=== PATIENT | male | born 1960 | race African-American/Black ===

== ENCOUNTER 2022-12-11 19:26 | Inpatient (IN) | payer OTHER ==
--- NOTE | 2022-12-11 20:39 | RAD REPORT ---
EXAM DESCRIPTION: RAD - Chest Single View - 12/11/2022 8:33 pm CLINICAL HISTORY: DYSPNEA Chest pain. COMPARISON: No comparisons FINDINGS: Portable technique limits examination quality. Mild interstitial pulmonary edema seen. Small left pleural effusion. The heart is prominent in size. Multi lead pacer/ defibrillator device present. IMPRESSION: Mild CHF. Small left pleural effusion.
[2022-12-11] MEDS ORDERED: FUROSEMIDE 40 MG/4 ML VIAL ONE (21:46)
[2022-12-11 21:54] LABS: Absolute Lymphocytes (CBC) 2.1 K/uL (0.7-4.9); Hematocrit 46.9 % (39.6-49.0); Lymphocytes % 29.7 % (15.3-44.8); MCV 100.2 fL (80-100); MPV 8.6 fL (7.6-11.3); RBC Red Blood Cell Count 4.68 M/uL (4.33-5.43)
[2022-12-11 22:07] LABS: Albumin 3.9 g/dL (3.4-5.0); Bilirubin Direct 0.3 mg/dL (0-0.2); Bilirubin Indirect, Calculated 0.6 mg/dL (0.2-0.8); Bilirubin Total 0.9 mg/dL (0.2-1.0); Potassium 2.8 mEq/L (3.5-5.1); Protein, Total 8.4 g/dL (6.4-8.2)
[2022-12-11 22:10] LABS: Troponin High Sensitivity 89.3 pg/mL (<58.9)
--- NOTE | 2022-12-11 22:24 | ER ---
Nurse's Notes [facility] Name: Milind Case Age: 62 yrs Sex: Male : 1960 Arrival Date: 12/11/2022 Time: 19:26 Bed 8 Private MD: Diagnosis: Unspecified combined systolic (congestive) and diastolic (congestive) heart failure;Acute pulmonary edema;Dyspnea, unspecified Presentation: 12/11 20:12 Chief complaint: Patient states: here from out of town and took a long bus ride and i lg3 have extra fluid build up X1 week. Complaints of bilateral lower ext. swelling, abdominal swelling, SOB .im taking my meds but they just arent keeping up. Coronavirus screen: Client denies travel out of the [place] in the last 14 days. At this time, the client does not indicate any symptoms associated with coronavirus-19. Ebola Screen: No symptoms or risks identified at this time. Initial Sepsis Screen: Does the patient meet any 2 criteria? No. Patient's initial sepsis screen is negative. Does the patient have a suspected source of infection? No. Patient's initial sepsis screen is negative. Risk Assessment: Do you want to hurt yourself or someone else? Patient reports no desire to harm self or others. Onset of symptoms was December 04, 2022. 20:12 Method Of Arrival: Ambulatory lg3 20:12 Acuity: NAM 3 lg3 Triage Assessment: 20:18 General: Appears in no apparent distress. uncomfortable, Behavior is calm, cooperative. lg3 Pain: Denies pain. EENT: No deficits noted. No signs and/or symptoms were reported regarding the EENT system. Neuro: No deficits noted. Chaves Agitation-Sedation Scale (RASS): 0 - Alert and Calm Level of Consciousness is awake, alert, obeys commands, Oriented to person, place, time, situation. Cardiovascular: No deficits noted. Denies chest pain, shortness of breath. Respiratory: Reports shortness of breath Airway is patent Respiratory effort is even, with nasal flaring. GI: Abdomen is round distended, noted to have ascites, Reports lower abdominal pain, upper abdominal pain, bloating. : No deficits noted. No signs and/or symptoms were reported regarding the genitourinary system. Derm: No deficits noted. No signs and/or symptoms reported regarding the dermatologic system. Skin is intact, is healthy with good turgor, Skin is dry, Skin is normal, Skin temperature is warm. Musculoskeletal: No deficits noted. No signs and/or symptoms reported regarding the musculoskeletal system. Circulation, motion, and sensation intact. Range of motion: intact in all extremities. Historical: - Allergies: 20:18 No Known Allergies; lg3 - PMHx: 20:18 CHF; lg3 - PSHx: 20:18 pacemaker; cardiac cath; cardiac ablasian; lg3 - Immunization history:: Adult Immunizations up to date, Client reports receiving the 2nd dose of the Covid vaccine. - Social history:: Smoking status: Patient denies any tobacco usage or history of. Patient uses alcohol, occasionally. - Family history:: not pertinent. - Hospitalizations: : No recent hospitalization is reported. Screenin:06 [facility] ED Fall Risk Assessment (Adult) History of falling in the last 3 months, mb9 including since admission No falls in past 3 months (0 pts) Confusion or Disorientation No (0 pts) Intoxicated or Sedated No (0 pts) Impaired Gait No (0 pts) Mobility Assist Device Used No (0 pt) Altered Elimination No (0 pt) Score/Fall Risk Level 0 - 2 = Low Risk Oriented to surroundings, Maintained a safe environment, Educated pt \T\ family on fall prevention, incl call for assistance when getting out of bed. Abuse screen: Denies threats or abuse. Nutritional screening: No deficits noted. Tuberculosis screening: No symptoms or risk factors identified. Assessment: 22:06 Reassessment: No changes from previously documented assessment. Patient and/or family mb9 updated on plan of care and expected duration. Pain level reassessed. Patient is alert, oriented x 3, equal unlabored respirations, skin warm/dry/pink. 12/12 01:16 GI: Bowel sounds present X 4 quads. Abd is soft and non tender X 4 quads. rv Vital Signs: 12/11 20:12 BP 91 / 71; Pulse 88; Resp 19 S; Temp 98.6(O); Pulse Ox 100% on R/A; Weight 95.25 kg lg3 (R); Height 6 ft. 3 in. (R); 22:05 BP 92 / 77; Pulse 85; Resp 16; Pulse Ox 100% on R/A; mb9 12/12 01:16 BP 91 / 71 RA Supine; Pulse 88; Resp 18; Temp 98; Pulse Ox 100% ; rv 12/11 20:12 Body Mass Index 26.25 (95.25 kg, 190.5 cm) lg3 01:16 laying on his left side rv [place] Coma Score: 01:17 Eye Response: spontaneous(4). Motor Response: obeys commands(6). Verbal Response: rv oriented(5). Total: 15. ED Course: 12/11 19:28 Patient arrived in ED. jj6 19:56 Yony Catalan MD is Attending Physician. rn 20:18 Triage completed. lg3 20:18 Arm band placed on right wrist. lg3 20:35 XRAY Chest (1 view) In Process Unspecified. EDMS 21:21 Michael Banda, RADHA is Primary Nurse. rv 21:30 Inserted saline lock: 20 gauge in right antecubital area, using aseptic technique. rv Blood collected. 22:06 Bed in low position. Call light in reach. Side rails up X 1. Client placed on mb9 continuous cardiac and pulse oximetry monitoring. NIBP monitoring applied. 22:06 No provider procedures requiring assistance completed. mb9 22:11 Notified ED physician of a critical lab result(s). troponin 89. mb9 22:22 Eldon Motta is Hospitalizing Provider. rn 12/12 01:16 Provided Education on: lasix. rv 01:16 Patient admitted, IV remains in place. rv Administered Medications: 12/11 21:49 Drug: Furosemide IVP 40 mg Route: IVP; Site: right antecubital; rv 23:47 Follow up: Response: No adverse reaction rv Medication: 12/12 01:16 VIS not applicable for this client. rv Outcome: 12/11 22:23 Decision to Hospitalize by Provider. rn 12/12 01:16 Admitted to ER Hold. Please see [facility] for further documentation. rv Condition: stable Instructed on the need for admit. 08:05 Patient left the ED. ss Signatures: Dispatcher [employer] EDMS Yony Catalan MD MD rn Blanchard, Shelby, RN RN ss Michael Banda RN RN rv Zahra Lamb RN RN lg3 Isadora Aldridge j6 Breneman, Laurie, RN RN mb9
--- NOTE | 2022-12-11 22:24 | EDPHYS ---
Physician Documentation [facility] Name: Milind Case Age: 62 yrs Sex: Male : 1960 Arrival Date: 12/11/2022 Time: 19:26 Bed 8 Private MD: ED Physician Yony Catalan HPI: 12/11 20:43 This 62 yrs old Black Male presents to ER via Ambulatory with complaints of Swelling of rn Lower Extremity, Abdominal Swelling, Shortness Of Breath. 20:44 The patient has shortness of breath at rest, with light activity. Onset: The rn symptoms/episode began/occurred 1 week(s) ago. Duration: The symptoms are continuous. The patient's shortness of breath is aggravated by exertion, light activity, supine position, walking, is alleviated by nothing. Severity of symptoms: At their worst the symptoms were moderate in the emergency department the symptoms are unchanged. The patient has experienced similar episodes in the past. Pt from out of town, reports CHF, takes lasix once daily and feels "fluid building up" over the last week. Reports BP typically in 90s systolic, and "that's where heart doctor wants it". Denies chest pain. No abd pain. No syncope or dizziness. No bleeding.. Historical: - Allergies: 20:18 No Known Allergies; lg3 - PMHx: 20:18 CHF; lg3 - PSHx: 20:18 pacemaker; cardiac cath; cardiac ablasian; lg3 - Immunization history:: Adult Immunizations up to date, Client reports receiving the 2nd dose of the Covid vaccine. - Social history:: Smoking status: Patient denies any tobacco usage or history of. Patient uses alcohol, occasionally. - Family history:: not pertinent. - Hospitalizations: : No recent hospitalization is reported. ROS: 20:44 Constitutional: Negative for fever, chills, and weight loss, Eyes: Negative for injury, rn pain, redness, and discharge, Cardiovascular: Negative for chest pain, palpitations Respiratory: Negative for cough, wheezing, and pleuritic chest pain, Abdomen/GI: Negative for abdominal pain, nausea, vomiting, diarrhea, and constipation, Back: Negative for injury and pain, MS/Extremity: Negative for injury and deformity, Skin: Negative for injury, rash, and discoloration, Neuro: Negative for headache, numbness, tingling, and seizure. Exam: 20:44 Constitutional: This is a well developed, well nourished patient who is awake, alert, rn and in no acute distress. Cardiovascular: Regular rate and rhythm. No pulse deficits. Respiratory: + mild tachypnea, no retractions Abdomen/GI: Soft, non-tender Skin: Warm, dry with normal turgor. Normal color with no rashes, no lesions, and no evidence of cellulitis. MS/ Extremity: mild lower ext edema bilaterally Neuro: Awake and alert, GCS 15 23:27 ECG was reviewed by the Attending Physician. rn Vital Signs: 20:12 BP 91 / 71; Pulse 88; Resp 19 S; Temp 98.6(O); Pulse Ox 100% on R/A; Weight 95.25 kg lg3 (R); Height 6 ft. 3 in. (R); 22:05 BP 92 / 77; Pulse 85; Resp 16; Pulse Ox 100% on R/A; mb9 12/12 01:16 BP 91 / 71 RA Supine; Pulse 88; Resp 18; Temp 98; Pulse Ox 100% ; rv 12/11 20:12 Body Mass Index 26.25 (95.25 kg, 190.5 cm) lg3 01:16 laying on his left side rv [place] Coma Score: 01:17 Eye Response: spontaneous(4). Motor Response: obeys commands(6). Verbal Response: rv oriented(5). Total: 15. MDM: 12/11 19:56 Patient medically screened. rn 22:21 Differential diagnosis: CHF exacerbation, Pneumothorax pulmonary edema. Data reviewed: rn vital signs, nurses notes, lab test result(s), EKG, radiologic studies, plain films, and as a result, I will admit patient. Consideration of Admission/Observation Patient was admitted/placed on observation. Escalation of care including admission/observation considered. Counseling: I had a detailed discussion with the patient and/or guardian regarding: the historical points, exam findings, and any diagnostic results supporting the discharge/admit diagnosis, lab results, radiology results, the need for further work-up and treatment in the hospital. ED course: UNable to be very aggressive with diuresis due to patient normally running on low end. Patient states this is his normal blood pressure due to his cardiac meds. Will admit for gentle diuresis and observation.. 12/11 20:18 Order name: Basic Metabolic Panel; Complete Time: 22:14 rn 12/11 20:18 Order name: CBC with Diff; Complete Time: 22:14 rn 12/11 20:18 Order name: LFT's; Complete Time: 22:14 rn 12/11 20:18 Order name: NT PRO-BNP; Complete Time: 22:14 rn 12/11 20:18 Order name: PT-INR; Complete Time: 22:14 rn 12/11 20:18 Order name: Troponin HS; Complete Time: 22:14 rn 12/11 22:55 Order name: NT PRO-BNP EDMS 12/11 22:55 Order name: Urinalysis w/ reflexes EDMS 12/11 22:55 Order name: Basic Metabolic Panel EDMS 12/11 22:55 Order name: Basic Metabolic Panel EDMS 12/11 22:55 Order name: Basic Metabolic Panel EDMS 12/11 22:55 Order name: Basic Metabolic Panel EDMS 12/11 22:55 Order name: CBC with Automated Diff EDMS 12/11 22:55 Order name: CBC with Automated Diff EDMS 12/11 22:55 Order name: CBC with Automated Diff EDMS 12/11 22:55 Order name: CBC with Automated Diff EDMS 12/11 22:55 Order name: Magnesium EDMS 12/11 22:55 Order name: Magnesium EDMS 12/11 22:55 Order name: Magnesium EDMS 12/11 22:55 Order name: Magnesium EDMS 12/11 22:55 Order name: Phosphorus EDMS 12/11 22:55 Order name: Phosphorus EDMS 12/11 22:55 Order name: Phosphorus EDMS 12/11 22:55 Order name: Phosphorus EDMS 12/11 20:18 Order name: XRAY Chest (1 view); Complete Time: 20:40 rn 12/11 20:18 Order name: EKG; Complete Time: 20:18 rn 12/11 22:55 Order name: Heart Healthy EDMS 12/11 20:18 Order name: Cardiac monitoring; Complete Time: 21:18 rn 12/11 20:18 Order name: EKG - Nurse/Tech; Complete Time: 21:49 rn 12/11 20:18 Order name: IV Saline Lock; Complete Time: 21:49 rn 12/11 20:18 Order name: Labs collected and sent; Complete Time: 21:49 rn 12/11 20:18 Order name: O2 Per Protocol; Complete Time: 21:18 rn 12/11 20:18 Order name: O2 Sat Monitoring; Complete Time: 21:18 rn EC:27 Rate is 92 beats/min. Rhythm is regular. QRS interval is prolonged at 142 msec. No Q rn waves. T waves are Normal. No ST changes noted. Clinical impression: Electronic pacemaker. Interpreted by me. Reviewed by me. Administered Medications: :49 Drug: Furosemide IVP 40 mg Route: IVP; Site: right antecubital; rv 23:47 Follow up: Response: No adverse reaction rv Disposition Summary: 12/11/22 22:23 Hospitalization Ordered Hospitalization Status: Observation rn Provider: Eldon Motta rn Condition: Stable rn Problem: an acute exacerbation rn Symptoms: are unchanged rn Bed/Room Type: Standard rn Location: Telemetry/MedSurg (observation)(12/12/22 06:22) [facility]12/12/22 06:22) Diagnosis - Unspecified combined systolic (congestive) and diastolic (congestive) heart failure rn - Acute pulmonary edema rn - Dyspnea, unspecified rn Forms: - Medication Reconciliation Form rn - SBAR form rn Signatures: Dispatcher [employer] EDMS Radha Padilla RN RN mw Nieto, Roman, MD MD rn Vicente, Ronaldo, RN RN rv Gibson, Lacie RN RN lg3 Corrections: (The following items were deleted from the chart) 22:41 22:23 Telemetry/MedSurg (observation) rn 22:41 22:23 rn 12/12 06:22 12/11 22:41 [facility] ER HOLD mw 12/12 06:22 12/11 22:41 ERHOLD- mw
--- NOTE | 2022-12-11 22:47 | P.HP ---
Certification for Inpatient Patient admitted to: Inpatient With expected LOS: <2 Midnights Practitioner: I am a practitioner with admitting privileges, knowledge of patient current condition, hospital course, and medical plan of care. Services: Services provided to patient in accordance with Admission requirements found in Title 42 Section 412.3 of the Code of Federal Regulations Patient History Date of Service: 12/11/22 Reason for admission: shortness of breath History of Present Illness: 62-year-old black male with a past medical history cardiac ablations, defibrillator pacemaker, of CAD, heart failure presents to the emergency room with abdominal swelling, shortness of breath. He reports shortness of breath x1 week, he reports trying to take diuretics and reports he is continuing to gain weight. He denies chest pain, cough, fever, chills, abdominal pain, dizziness, syncope. He reports he is traveling from out out of town and is here for the summer. He reports history of low ejection fraction, he thinks is an average of 15%. Laboratory evaluation Acute on chronic kidney injury BUN 50 creatinine 1.72, estimated GFR 44 sodium mild 132 hypokalemia 2.8, troponin 89.3, likely elevated from acute on chronic heart failure BNP 4445 Chest x-ray Mild interstitial pulmonary edema seen. Small left pleural effusion. The heart is prominent in size. Multi lobe lead pacer/ defibrillator device present.IMPRESSION: Mild CHF.Small left pleural effusion. Review of Systems 10-point ROS is otherwise unremarkable Physical Examination - Physical Exam General: Alert, In no apparent distress, Oriented x3 HEENT: Atraumatic, Normocephalic, PERRLA Neck: 2+ carotid pulse no bruit, JVD not distended Respiratory: Normal air movement, Diminished Cardiovascular: No edema, Normal pulses, Regular rate/rhythm Capillary refill: <2 Seconds Gastrointestinal: Other (Abdominal obesity likely from fluid) Musculoskeletal: No clubbing, No swelling Integumentary: No rashes, No breakdown Neurological: Normal gait, Normal speech, Normal strength at 5/5 x4 extr - Studies Laboratory Data (last 24 hrs) 12/11/22 21:30: PT 11.9, INR 1.00 12/11/22 21:30: WBC 7.20, Hgb 15.5, Hct 46.9, Plt Count 198 12/11/22 21:30: Sodium 132 L, Potassium 2.8 L, BUN 50 H, Creatinine 1.72 H, Glucose 124 H, Total Bilirubin 0.9, AST 34, ALT 41, Alkaline Phosphatase 89 Assessment and Plan - Plan Assessment plan Acute on chronic heart failure with reduced ejection Elevated troponin likely from heart failure Acute on chronic kidney injury-unknown baseline Mild hypokalemia Pulmonary edema Anasarca Defibrillator/pacemaker DVT prophylaxis Acute on chronic heart failure with reduced ejection Cardiology consult, echo in the a.m. diuretics, daily weight, IO Elevated troponin likely from heart failure Trend troponin, troponin 89.3, Mild hypokalemia hypokalemia 2.8 Trend electrolytes replace as needed Acute on chronic kidney injury likely due to diuretic use unknown baseline Nephrology consult Acute on chronic kidney injury BUN 50 creatinine 1.72, estimated GFR 44 Pulmonary edema O2 2 L keep sats greater than 92%, diuretics, trend BNP Chest x-ray Mild interstitial pulmonary edema seen. Small left pleural effusion. The heart is prominent in size. Multi lobe lead pacer/ defibrillator device present.IMPRESSION: Mild CHF.Small left pleural effusion. BNP 4445 Anasarca Daily weights, diuretics, Defibrillator/pacemaker Telemetry, Cardiac diet Full code DVT heparin Discharge Plan: Home Plan to discharge in: 48 Hours - Advance Directives Does patient have a Living Will: No Does patient have a Durable POA for Healthcare: No - Code Status/Comfort Care Code Status: Full Code Physician Review: Patient Assessed, Agree with Above Assessment and Plan Critical Care: Yes Time Spent Managing Pts Care (In Minutes): 55
[2022-12-11] MEDS ORDERED: ONDANSETRON 4 MG/2 ML VIAL IV PRN (22:53)
[2022-12-11] MEDS ORDERED: ACETAMINOPHEN 500 MG TAB PO PRN (22:53)
[2022-12-12 02:05] LABS: Absolute Lymphocytes (CBC) 1.7 K/uL (0.7-4.9); Hematocrit 44.4 % (39.6-49.0); MCV 100.3 fL (80-100); MPV 8.5 fL (7.6-11.3); RBC Red Blood Cell Count 4.42 M/uL (4.33-5.43)
[2022-12-12 02:24] LABS: Magnesium 2.3 mg/dL (1.6-2.4); Phosphorus 3.9 mg/dL (2.5-4.9); Potassium 2.8 mEq/L (3.5-5.1)
[2022-12-12] MEDS ORDERED: POTASSIUM CL SA 10 MEQ TAB PO SCH ×2 (03:38→09:00)
[2022-12-12] MEDS ORDERED: POTASSIUM CL SA 10 MEQ TAB PO ONE ×2 (03:49→21:05)
[2022-12-12] MEDS ORDERED: ALPRAZOLAM 0.25 MG TABLET ONE (05:48)
[2022-12-12 06:01] LABS: Specific Gravity 1.012 (1.005-1.030); Urine Bilirubin NEGATIVE (Negative); Urine Blood Negative (Negative); Urine Clarity Clear (Clear); Urine Color Light-Yellow (Yellow); Urine Glucose 4+ (Negative); Urine Protein NEGATIVE (Negative); Urine Urobilinogen Normal (Normal); Urine pH 6.5 (5.0-7.0)
[2022-12-12] MEDS ORDERED: POTASSIUM CL 40 MEQ in NA CHLORIDE 0.9% 500 ML IV SCH (09:00)
[2022-12-12] MEDS: MIDODRINE HCL 5 MG TABLET PO SCH ×3 (09:26→21:33)
[2022-12-12] MEDS: POTASSIUM CL SA 10 MEQ TAB PO SCH ×2 (09:26→12:38)
--- NOTE | 2022-12-12 15:04 | P.CNS ---
Date of Consult: 12/12/22 Reason for Consult: Renal failure Requesting Physician: haley dominguez Chief Complaint: shortness of breath History of Present Illness: 62AAM w/ PMHx of CAD & chronic systolic HF/non-ischemic cardiomyopathy, cardiac ablations, defibrillator/pacemaker placement, who p/w shortness of breath and increased abdominal girth, admitted for acute on chronic heart failure. He lives in [place] and is here in [place] for a visit. He reports he has been following a senior gis analyst in [place]. He states his most recent LVEF is 15%. He states he takes Lasix and metolazone and Entresto at home. He is referred to nephrology for renal failure. His serum creatinine is 1.7 on admission, today remains the same at 1.7. He has hypokalemia. His serum bicarb level is elevated. His BNP significantly elevated. His blood pressure is borderline low and is currently on midodrine. Allergies No Known Allergies Allergy (Unverified 12/12/22 00:25) - Social History Place of Residence: Home Review of Systems General: Unremarkable Eyes: Unremarkable ENT: Unremarkable Respiratory: Shortness of Breath, SOB with Excertion Cardiovascular: Edema Gastrointestinal: Distention Genitourinary: Unremarkable Musculoskeletal: Unremarkable Integumentary: Unremarkable Neurological: Unremarkable Lymphatics: Unremarkable Physical Examination Temp Pulse Resp BP Pulse Ox 97.0 F 100 H 16 121/72 95 12/12/22 11:52 12/12/22 11:52 12/12/22 11:52 12/12/22 11:52 12/12/22 11:52 General: Other (appears as his stated age) HEENT: Atraumatic, Normocephalic Neck: Supple Respiratory: Other (symmetric chest expansion) Cardiovascular: No rubs, No murmurs Gastrointestinal: Soft and benign, No guarding Musculoskeletal: No clubbing, Swelling Integumentary: No warmth Neurological: Normal speech, Normal tone Lymphatics: No axilla or inguinal lymphadenopathy Urinary: Other (no bladder distention) External genitalia: Deferred Rectal: Deferred Laboratory Data (last 24 hrs) 12/11/22 21:30: PT 11.9, INR 1.00 12/11/22 21:30: WBC 7.20, Hgb 15.5, Hct 46.9, Plt Count 198 12/11/22 21:30: Sodium 132 L, Potassium 2.8 L, BUN 50 H, Creatinine 1.72 H, Glucose 124 H, Total Bilirubin 0.9, AST 34, ALT 41, Alkaline Phosphatase 89 Conclusions/Impression: # FREDDY 2/2 CRS1 on CKD3, vs stable CKD3b SCr 1.7 on admission, today remains the same Has serum protein gap. urinalysis negative for proteinuria. Follow-up random UPCR. Cont Lasix 60 IV twice a day [place] by mouth fluid intake # Acute on chronic systolic HF/non-ischemic cardiomyopathy S/p AICD He is followed by a senior gis analyst in [place]. He reports his most recent LVEF is 15%. BNP significantly elevated F/u TTE Cardiology consult Continue Lasix 60 mg IV twice a day # Hypokalemia Follow-up urine chemistry KCl repletion today # Hypotension likely secondary to heart failure Continue midodrine
--- NOTE | 2022-12-12 15:12 | P.PN ---
Subjective Date of Service: 12/12/22 Chief Complaint: shortness of breath Patient states his shortness of breath and lower extremity swelling have improved but still very concerned about his abdominal distention. He is tolerating room air. Physical Examination - Vital Signs Temperature: 97.0 F Blood Pressure: 121/72 Pulse: 100 Respirations: 16 Pulse Ox (%): 95 - Studies Laboratory Data (last 24 hrs) 12/11/22 21:30: PT 11.9, INR 1.00 12/11/22 21:30: WBC 7.20, Hgb 15.5, Hct 46.9, Plt Count 198 12/11/22 21:30: Sodium 132 L, Potassium 2.8 L, BUN 50 H, Creatinine 1.72 H, Glucose 124 H, Total Bilirubin 0.9, AST 34, ALT 41, Alkaline Phosphatase 89 Assessment And Plan - Plan Physical Exam General: Alert, In no apparent distress, Oriented x3 Neck: JVD not distended Respiratory: Normal air movement, Diminished Cardiovascular: No edema, Normal pulses, Regular rate/rhythm Gastrointestinal: Ascites, no tenderness. Musculoskeletal: No clubbing, No swelling Integumentary: No rashes, No breakdown Neurological: Normal gait, Normal speech, Normal strength at 5/5 x4 extr Diagnosis Acute on chronic systolic heart failure Type II NSTEMI Acute on chronic kidney injury-unknown baseline Hypokalemia Anasarca Defibrillator/pacemaker in place Plan Acute on chronic heart failure with reduced ejection Continue IV Lasix for diuresis Daily weight, intake and output monitor. Fluid restriction to 1500 ml per day. AICD in place Elevated troponin likely from heart failure Trend troponin. Mild hypokalemia Replace electrolytes as needed Acute on chronic kidney injury likely due to diuretic use unknown baseline Nephrology consult Full code DVT prophylaxis: heparin
[2022-12-12] MEDS: FUROSEMIDE 40 MG/4 ML VIAL IV SCH (16:02)
--- NOTE | 2022-12-12 17:54 | RAD REPORT ---
EXAM DESCRIPTION: US - Renal Ultrasound-Complete - 12/12/2022 5:47 pm CLINICAL HISTORY: FREDDY vs CKD, assess for hydroneph CKD changes COMPARISON: No comparisons FINDINGS: Both kidneys are normal in size, shape and echotexture. The right kidney measures 10.3 cm. No hydronephrosis, focal mass or perinephric fluid. The left kidney measures 9.2 cm. No hydronephrosis, focal mass or perinephric fluid. The urinary bladder is incompletely distended without gross abnormality seen. IMPRESSION: Unremarkable renal sonogram. No hydronephrosis .
[2022-12-12 18:02] LABS: UR PROTEIN 19.1 mg/dL (<11.9); Urine Protein/Creatinine Ratio 0.37 ratio (<0.15)
--- NOTE | 2022-12-12 18:08 | CON ---
Date of Consultation: 12/12/2022 Reason For Consultation: Heart failure. History Of Present Illness: A 62-year-old male, known to have history of nonischemic cardiomyopathy, ejection fraction is less than 20%, has defibrillator in place, presented with worsening shortness o f breath, lower extremity edema, and orthopnea. No chest pain. He took a long trip from [place], ri ding the bus about 24 hours, and he did not take his diuretics and he came in and I called his cardio logist and he added metolazone but fluids were not coming off and he became extremely short of breath , so he presented to the emergency room. Past Medical History: As outlined above in the HPI. Medications: Refer to reconciliation sheet for detailed list. Allergies: NO KNOWN DRUG ALLERGIES. Family History: No premature coronary artery disease or cancer. Social History: He does not smoke or drink. Does not use any drugs. Review of Systems: All systems were reviewed, they were negative except as mentioned in HPI. Physical Examination: Vital Signs: Reviewed. Head and Neck: Pupils are equal, reactive to light. Intact eye movements. Positive JVD. No cervic al lymphadenopathy. Neck is supple. Thyroid is not enlarged. Lungs: Clear to auscultation bilaterally. No rhonchi, wheezing, or crackles. No accessory muscle u se. Heart: Regular rate and rhythm with S3 gallop. Abdomen: Soft, nontender. Bowel sounds positive. No organomegaly. No masses or hernia. No rigidi ty or rebound. Extremities: 2+ pedal edema bilaterally. No clubbing, cyanosis. Intact pulses. Skin: No rash. No nodules. Neurologic: Alert, awake. No acute focal deficits appreciated. Investigations: BUN 49, creatinine 1.72, potassium is 2.8. Troponin is 89. Assessment And Recommendations: 1.Acute on chronic systolic heart failure exacerbation. Definitely the patient is fluid overloaded, start him on Lasix at 60 mg IV q.12 hours. Monitor BUN, creatinine, electrolytes, and replace the p otassium in an aggressive manner. Check the magnesium level. 2.Hypokalemia. Potassium is being replaced. Check magnesium level and replace if needed. 3.Elevated troponin, likely demand. No chest pain. He said he had cardiac cath in the past with no rmal coronary arteries. We will monitor. SR/MODL Voice ID: [id number] Report ID: [id number]
[2022-12-12] MEDS: ALPRAZOLAM 0.25 MG TABLET PO PRN (21:35)
[2022-12-13 02:51] LABS: Absolute Lymphocytes (CBC) 1.7 K/uL (0.7-4.9); Hematocrit 42.9 % (39.6-49.0); Lymphocytes % 24.4 % (15.3-44.8); MCV 100.8 fL (80-100); MPV 8.7 fL (7.6-11.3); RBC Red Blood Cell Count 4.25 M/uL (4.33-5.43)
[2022-12-13 03:06] LABS: Magnesium 2.1 mg/dL (1.6-2.4); Phosphorus 3.5 mg/dL (2.5-4.9); Potassium 3.4 mEq/L (3.5-5.1)
[2022-12-13] MEDS: MIDODRINE HCL 5 MG TABLET PO SCH (08:38)
[2022-12-13] MEDS: FUROSEMIDE 40 MG/4 ML VIAL IV SCH ×2 (08:44→16:22)
[2022-12-13] MEDS ORDERED: METOLAZONE 5 MG TABLET PO SCH (09:00)
[2022-12-13] MEDS ORDERED: POTASSIUM CL SA 10 MEQ TAB PO ONE (09:00)
[2022-12-13] MEDS: MIDODRINE HCL 5 MG TABLET PO PRN (09:00)
[2022-12-13] MEDS: ASPIRIN 81 MG CHEWABLE TABLET PO SCH (09:00)
[2022-12-13] MEDS: SACUBITRIL/VALSARTAN 24/26 MG TAB PO SCH ×2 (09:00→21:24)
[2022-12-13] MEDS: POTASSIUM CL SA 10 MEQ TAB PO SCH ×2 (09:01→21:00)
[2022-12-13] MEDS: HOME MED 1 EA UNK (Dapagliflozin Propanediol [Farxiga] 5 MG Tablet) PO SCH (09:27)
[2022-12-13] MEDS: HOME MED 1 EA UNK (Vericiguat [Verquvo] 5 MG Tablet) PO SCH (09:28)
--- NOTE | 2022-12-13 12:57 | P.PN ---
Subjective Date of Service: 12/13/22 Chief Complaint: shortness of breath Subjective: Other (He reports no increase in shortness of breath.) Physical Examination - Vital Signs Temperature: 97.5 F Blood Pressure: 111/92 Pulse: 96 Respirations: 16 Pulse Ox (%): 96 - Physical Exam General: Other (appears as his stated age) HEENT: Atraumatic, Normocephalic Neck: Supple, JVD not distended Respiratory: Other (symmetric chest expansion) Cardiovascular: No rubs, No murmurs Gastrointestinal: Soft and benign, No rebound Musculoskeletal: Swelling Integumentary: No warmth Neurological: Normal speech, Normal tone Urinary: Other (no bladder distention) External genitalia: Deferred Rectal: Deferred Assessment And Plan - Plan # FREDDY 2/2 CRS1 on CKD3, vs stable CKD3b SCr 1.7 on admission, at 1.6 today Has serum protein gap. urinalysis negative for proteinuria. Follow-up random UPCR. Cont Lasix 60 mg IV twice a day [place] by mouth fluid intake # Hypokalemia KCl repletion today Start sonal 25 mg po bid Dc metolazone Cont lasix # Acute on chronic systolic HF/non-ischemic cardiomyopathy S/p AICD He is followed by a customer care consultant in [place]. He reports his most recent LVEF is 15%. BNP significantly elevated F/u TTE Cardiology following Continue Lasix 60 mg IV twice a day Start sonal po bid as above # Hypotension likely secondary to heart failure Continue midodrine Physician Review: Patient Assessed, Agree with Above Assessment and Plan
--- NOTE | 2022-12-13 13:01 | P.PN ---
Subjective Date of Service: 12/13/22 Chief Complaint: shortness of breath Patient reports worsening shortness of breath last night. He was put on oxygen last night. He states he feels much better this morning. Good diuresis with the current dose of IV Lasix. He is now tolerating room air. Physical Examination - Vital Signs Temperature: 97.5 F Blood Pressure: 111/92 Pulse: 96 Respirations: 16 Pulse Ox (%): 96 Assessment And Plan - Plan Physical Exam General: Alert, In no apparent distress, Oriented x3 Neck: JVD not distended Respiratory: Normal air movement, Diminished Cardiovascular: No edema, Normal pulses, Regular rate/rhythm Gastrointestinal: Ascites, no tenderness. Musculoskeletal: No clubbing, No swelling Integumentary: No rashes, No breakdown Neurological: Normal gait, Normal speech, Normal strength at 5/5 x4 extr Diagnosis Acute on chronic systolic heart failure Type II NSTEMI Acute on chronic kidney injury-unknown baseline Hypokalemia Anasarca Defibrillator/pacemaker in place Plan Acute on chronic heart failure with reduced ejection Continue current dose IV Lasix for diuresis. Resume home medication-metolazone, Entresto, Verquvo. Midodrine for hypotension. Cardiology input appreciated. Ascites is improving Daily weight, intake and output monitor. Fluid restriction to 1500 ml per day. AICD in place Elevated troponin likely from heart failure Troponin was mildly elevated but trended flat and likely secondary to demand ischemia. Mild hypokalemia Replace electrolytes as needed Acute on chronic kidney injury likely due to diuretic use unknown baseline Nephrology is following. Full code DVT prophylaxis: heparin
[2022-12-13] MEDS ORDERED: POTASSIUM 25 MEQ EFFERV TAB PO ONE (16:12)
[2022-12-13] MEDS: ALPRAZOLAM 0.25 MG TABLET PO PRN (21:24)
[2022-12-14 03:36] LABS: Absolute Lymphocytes (CBC) 2.2 K/uL (0.7-4.9); Hematocrit 43.5 % (39.6-49.0); Lymphocytes % 28.2 % (15.3-44.8); MCV 99.7 fL (80-100); MPV 8.7 fL (7.6-11.3); RBC Red Blood Cell Count 4.36 M/uL (4.33-5.43)
[2022-12-14 03:59] LABS: Magnesium 1.9 mg/dL (1.6-2.4); Phosphorus 3.3 mg/dL (2.5-4.9); Potassium 2.9 mEq/L (3.5-5.1)
[2022-12-14] MEDS ORDERED: POTASSIUM CL SA 10 MEQ TAB PO ONE ×2 (07:17→15:18)
[2022-12-14] MEDS ORDERED: KCL 20 MEQ/100 mL IVPB 20 MEQ/100 ML BAG IV SCH (08:00)
[2022-12-14] MEDS ORDERED: NA CHLORIDE 0.9% 250 ML ONE (08:06)
[2022-12-14] MEDS: ASPIRIN 81 MG CHEWABLE TABLET PO SCH (08:59)
[2022-12-14] MEDS: SACUBITRIL/VALSARTAN 24/26 MG TAB PO SCH ×2 (09:00→20:42)
[2022-12-14] MEDS: HOME MED 1 EA UNK (Vericiguat [Verquvo] 5 MG Tablet) PO SCH (09:01)
[2022-12-14] MEDS: HOME MED 1 EA UNK (Dapagliflozin Propanediol [Farxiga] 5 MG Tablet) PO SCH (09:01)
[2022-12-14] MEDS: SPIRONOLACTONE 25 MG TABLET PO SCH ×2 (09:03→20:35)
[2022-12-14] MEDS: FUROSEMIDE 40 MG/4 ML VIAL IV SCH ×2 (09:03→16:30)
[2022-12-14] MEDS: VITAMIN D 1000 UNIT TAB PO SCH (09:14)
--- NOTE | 2022-12-14 12:45 | P.PN ---
Subjective Date of Service: 12/14/22 Chief Complaint: shortness of breath Patient reports no issues overnight. He currently denies any shortness of breath. His leg swelling and ascites have significantly improved. Good diuresis with the current dose of IV Lasix. Serum creatinine trended up slightly compared to yesterday. * Physical Examination - Vital Signs Temperature: 98.8 F Blood Pressure: 91/64 Pulse: 95 Respirations: 16 Pulse Ox (%): 96 Assessment And Plan - Plan Physical Exam General: Alert, In no apparent distress, Oriented x3 Neck: JVD not distended Respiratory: Normal air movement, Diminished Cardiovascular: No edema, Normal pulses, Regular rate/rhythm Gastrointestinal: Ascites significantly improved, no tenderness. Musculoskeletal: No clubbing, No swelling Integumentary: No rashes, No breakdown Neurological: Normal gait, Normal speech, Normal strength at 5/5 x4 extr Diagnosis Acute on chronic systolic heart failure Type II NSTEMI Acute on chronic kidney injury-unknown baseline Hypokalemia Anasarca Defibrillator/pacemaker in place Plan Acute on chronic heart failure with reduced ejection Continue current dose IV Lasix for diuresis. Serum creatinine is overall fairly stable. Continue home medication-metolazone, Entresto, Verquvo. Midodrine for hypotension. Cardiology seen patient Ascites has significantly improved. Daily weight, intake and output monitor. Fluid restriction to 1500 ml per day. AICD in place Elevated troponin likely from heart failure Troponin was mildly elevated but trended flat and likely secondary to demand ischemia. Mild hypokalemia Replace electrolytes as needed Acute on chronic kidney injury likely due to diuretic use unknown baseline Nephrology is following. Full code DVT prophylaxis: heparin
--- NOTE | 2022-12-14 14:28 | P.PN ---
Subjective Date of Service: 12/14/22 Chief Complaint: shortness of breath Subjective: Other (no urinary complaints.) Physical Examination - Vital Signs Temperature: 98.8 F Blood Pressure: 91/64 Pulse: 95 Respirations: 16 Pulse Ox (%): 96 - Physical Exam General: Alert, Oriented x3 HEENT: Atraumatic, Normocephalic Neck: Supple, JVD not distended Respiratory: Other (symmetric chest expansion) Cardiovascular: No rubs, No murmurs Gastrointestinal: Soft and benign, No ascites Musculoskeletal: Swelling Integumentary: No warmth Neurological: Normal speech, Normal tone Urinary: Other (no bladder distention) External genitalia: Deferred Rectal: Deferred Assessment And Plan - Plan # FREDDY 2/2 CRS1 on CKD3, vs stable CKD3b SCr 1.7 on admission, at 1.8 today Has serum protein gap. urinalysis negative for proteinuria. Follow-up random UPCR. Cont Lasix 60 mg IV twice a day [place] by mouth fluid intake # Hypokalemia KCl repletion today Sonal 25 mg po bid Cont lasix # Acute on chronic systolic HF/non-ischemic cardiomyopathy S/p AICD He is followed by a pleat taper in [place]. He reports his most recent LVEF is 15%. BNP significantly elevated For TTE on 12/15 Cardiology following Has adeq natriuresis on repeat urine chem done on 12/14 Continue Lasix 60 mg IV twice a day Cont sonal po bid as above # Hypotension likely secondary to heart failure Continue midodrine Physician Review: Patient Assessed, Agree with Above Assessment and Plan
[2022-12-14] MEDS: MIDODRINE HCL 5 MG TABLET PO PRN (16:30)
[2022-12-14 18:45] VITALS: BMI 27.7
[2022-12-14] MEDS: ALPRAZOLAM 0.25 MG TABLET PO PRN (20:36)
[2022-12-15] MEDS: MIDODRINE HCL 5 MG TABLET PO PRN (00:14)
[2022-12-15] MEDS ORDERED: NA CHLORIDE 0.9% 1,000 ML ONE (04:14)
[2022-12-15] MEDS ORDERED: POTASSIUM 25 MEQ EFFERV TAB ONE (05:05)
[2022-12-15 07:46] LABS: Absolute Lymphocytes (CBC) 2.4 K/uL (0.7-4.9); Hematocrit 42.6 % (39.6-49.0); Lymphocytes % 35.1 % (15.3-44.8); MCV 99.8 fL (80-100); MPV 9.3 fL (7.6-11.3); RBC Red Blood Cell Count 4.27 M/uL (4.33-5.43)
[2022-12-15] MEDS: FUROSEMIDE 40 MG/4 ML VIAL IV SCH ×3 (09:00→17:38)
[2022-12-15] MEDS: SACUBITRIL/VALSARTAN 24/26 MG TAB PO SCH ×2 (09:00→20:24)
[2022-12-15] MEDS: VITAMIN D 1000 UNIT TAB PO SCH (09:00)
[2022-12-15] MEDS: ASPIRIN 81 MG CHEWABLE TABLET PO SCH (09:00)
[2022-12-15] MEDS: HOME MED 1 EA UNK (Dapagliflozin Propanediol [Farxiga] 5 MG Tablet) PO SCH (09:00)
[2022-12-15] MEDS: HOME MED 1 EA UNK (Vericiguat [Verquvo] 5 MG Tablet) PO SCH (09:00)
[2022-12-15] MEDS: SPIRONOLACTONE 25 MG TABLET PO SCH ×2 (09:00→20:24)
--- NOTE | 2022-12-15 11:54 | EKG ---
Test Date: 2022-12-11 Test Time: 21:43:29 Biomass Technician: RV MEASUREMENT RESULTS: Intervals: Rate: 92 ND: 158 QRSD: 142 QT: 416 QTc: 514 [place]: P: 48 ND: 158 QRS: 125 T: 27 INTERPRETIVE STATEMENTS: Electronic ventricular pacemaker No previous ECG available for comparison Electronically Signed On 12-15-22 11:47:53 CDT by Simon Molina
[2022-12-15] MEDS ORDERED: KCL 20 MEQ/100 mL IVPB 100 ML IV ONE (12:32)
--- NOTE | 2022-12-15 13:38 | ECHO ---
HEIGHT: 6 ft 3 in WEIGHT: 222 lb 0 oz DATE OF STUDY: 12/15/[address]: Ronal Isaacs MD 2-DIMENSIONAL: YES M.MODE: YES DOPPLER: YES COLOR FLOW: YES TDS: PORTABLE: YES DEFINITY: BUBBLE STUDY: DIAGNOSIS: CONGESTIVE HEART FAILURE CARDIAC HISTORY: CATHERIZATION: YES SURGERY: PROSTHETIC VALVE: PACEMAKER: YES/ DEFIB MEASUREMENTS (cm) DIASTOLIC (NORMALS) SYSTOLIC (NORMALS) IVSd 0.9 (0.6-1.2) LA Diam 5.2 (1.9-4.0) LVEF 17% LVIDd 7.3 (3.5-5.7) LVIDs 6.7 (2.0-3.5) %FS 8% LVPWd 1.0 (0.6-1.2) Ao Diam 2.8 (2.0-3.7) 2 DIMENSIONAL ASSESSMENT: RIGHT ATRIUM: NORMAL LEFT ATRIUM: ENLARGED RIGHT VENTRICLE: NORMAL WITH PACEMAKER LEFT VENTRICLE: DILATED LEFT VENTRICLE TRICUSPID VALVE: SEVERE TRICUSPID REGURGITATION MITRAL VALVE: MILD MITRAL REGURGITATION PULMONIC VALVE: MILD PULMONIC INSUFFICIENCY AORTIC VALVE: NORMAL PERICARDIAL EFFUSION: NONE AORTIC ROOT: NORMAL LEFT VENTRICULAR WALL MOTION: SEVERE GLOBAL HYPOKINESIS DOPPLER/COLOR FLOW: SEE BELOW COMMENTS: 1. SEVERELY DEPRESSED LEFT VENTRICULAR EJECTION FRACTION 15-20% 2. SEVERE GLOBAL HYPOKINESIS 3. LEFT ATRIAL ENLARGEMENT 4. SEVERELY DILATED LEFT VENTRICLE 5. MILD MITRAL REGURGITATION 6. SEVERE TRICUSPID REGURGITATION 7. MILD PULMONIC INSUFFICIENCY 8. SEVERE DIASTOLIC DYSFUNCTION (RESTRICTIVE) 9. RIGHT VENTRICULAR SYSTOLIC PRESSURE IS 30-35 mmHg TECHNOLOGIST: JUANIS HARRISON
[2022-12-15 13:47] LABS: Potassium 2.5 mEq/L (3.5-5.1)
[2022-12-15] MEDS: KCL 20 MEQ/100 mL IVPB 100 ML IV SCH ×2 (14:00→14:47)
--- NOTE | 2022-12-15 14:41 | P.PN ---
Subjective Date of Service: 12/15/22 Chief Complaint: shortness of breath Patient reports no issues overnight. He currently denies any shortness of breath. His leg swelling has significantly improved. He is still concerned about his ascites Good diuresis with the current dose of IV Lasix. Serum creatinine stable from yesterday. * Physical Examination - Vital Signs Temperature: 98.8 F Blood Pressure: 91/64 Pulse: 95 Respirations: 16 Pulse Ox (%): 96 Assessment And Plan - Plan Physical Exam General: Alert, In no apparent distress, Oriented x3 Neck: JVD not distended Respiratory: Normal air movement, Diminished Cardiovascular: No edema, Normal pulses, Regular rate/rhythm Gastrointestinal: Ascites significantly improved, no tenderness. Musculoskeletal: No clubbing, No swelling Integumentary: No rashes, No breakdown Neurological: Normal gait, Normal speech, Normal strength at 5/5 x4 extr Diagnosis Acute on chronic systolic heart failure Type II NSTEMI Acute on chronic kidney injury-unknown baseline Hypokalemia Anasarca Defibrillator/pacemaker in place Plan Acute on chronic heart failure with reduced ejection Continue current dose IV Lasix for diuresis. Serum creatinine is overall fairly stable. Continue home medication-metolazone, Entresto, Verquvo. Midodrine for hypotension. Repeat potassium. Patient started on Aldactone for advanced heart failure. Cardiology seen patient US guided paracentesis for ascites. Daily weight, intake and output monitor. Fluid restriction to 1500 ml per day. AICD in place Elevated troponin likely from heart failure Troponin was mildly elevated but trended flat and likely secondary to demand ischemia. Mild hypokalemia Replace electrolytes as needed Acute on chronic kidney injury likely due to diuretic use unknown baseline Nephrology is following. Full code DVT prophylaxis: heparin
[2022-12-15 16:44] LABS: Phosphorus 3.3 mg/dL (2.5-4.9)
[2022-12-15 16:45] LABS: Magnesium 2.1 mg/dL (1.6-2.4); Potassium 3.6 mEq/L (3.5-5.1)
--- NOTE | 2022-12-15 20:35 | PN ---
Date of Progress Note: 12/14/2022 Subjective: Patient was seen by bedside, doing better. Continues to have shortness of breath on exe rtion. He has increase in abdominal girth, also some ascites. Review of Systems: Positive shortness of breath on exertion, orthopnea, and ascites. No nausea, vomiting, or diarrhea. No abdominal pain. All other systems reviewed, they were negative. Physical Examination: Vital Signs: Reviewed. Head and Neck: Pupils are equal, reactive to light. Intact eye movements. Positive JVD elevation. Lungs: Clear to auscultation bilaterally. No rhonchi, wheezing, or crackles. No accessory muscle u se. Heart: Regular rate and rhythm with S3 gallop. Abdomen: Soft with mild ascites. Extremities: Edema bilaterally 1+. No clubbing, cyanosis. Intact pulses. Skin: No rash. Neurologic: Alert, awake. No acute focal deficits appreciated. Investigations: Labs reviewed. Assessment/recommendations: 1.Acute on chronic systolic heart failure exacerbation, on diuretics, improving. Continue current m anagement. Obtain echo in the morning. 2.Hypokalemia. Replace potassium in aggressive manner and re-evaluate to keep potassium above 4. SR/MODL Voice ID: [id number] Report ID: [id number]
--- NOTE | 2022-12-15 20:50 | PN ---
Date of Progress Note: 12/15/2022 Subjective: Seen by bedside. Continues to have shortness of breath with exertion. Review of Systems: Positive for shortness of breath. No exertional orthopnea and lower extremity edema. No nausea, vom iting, diarrhea. All other systems reviewed, they were negative. Physical Examination: Vital Signs: Reviewed. Head and Neck: Pupils are equal, reactive to light. Intact eye movements. Positive JVD. No cervic al lymphadenopathy. Neck: Supple. Thyroid is not enlarged. Lungs: Decreased breathing sounds with faint crackles in bases. No accessory muscle use or muscle r etraction. Heart: Regular rate and rhythm with S3 gallop. Abdomen: Soft, nontender. Bowel sounds positive. No rigidity or rebound. Positive ascites extremi ties 1+ edema bilaterally. No clubbing, cyanosis. Intact pulses skin no rash. Neurologic: Alert, awake, oriented x3. No acute focal deficits appreciated. Investigations: Labs reviewed. Assessment/recommendations: 1.Acute on chronic systolic heart failure exacerbation, improving slowly, but I reviewed his echo to day. His ejection fraction is in the range of 10% to 15%. Severely dilated left ventricle, but with good right ventricular function. This patient would benefit from [facility] evaluation. I recommended transfer to the [facility] for heart failure and transplant team e valuation. Could benefit either from chronic inotropic therapy or left ventricular assist device as a bridge to transplant if his kidney function improves or and he might need to be considered for hear t and kidney transplant. I had a long discussion with him and recommended transfer. 2.Chronic kidney failure, cardiorenal. This will improve if he gets some inotropic therapy. Hence, I recommend transfer to [facility] and titrate. SR/MODL Voice ID: [id number] Report ID: [id number]
[2022-12-15] MEDS ORDERED: POTASSIUM CL SA 10 MEQ TAB PO ONE (21:37)
[2022-12-16 02:58] LABS: Absolute Lymphocytes (CBC) 2.2 K/uL (0.7-4.9); Hematocrit 44.4 % (39.6-49.0); Lymphocytes % 31.5 % (15.3-44.8); MCV 100.4 fL (80-100); MPV 9.1 fL (7.6-11.3); RBC Red Blood Cell Count 4.42 M/uL (4.33-5.43)
[2022-12-16 03:09] LABS: Potassium 3.3 mEq/L (3.5-5.1)
--- NOTE | 2022-12-16 03:56 | PN ---
Date of Progress Note: 12/15/2022 Subjective: Acute kidney injury, nonoliguric, secondary to multiple causes. The patient has cardior enal syndrome. He has been treated with Lasix. Urine output has improved. The patient has borderli ne hypotension. He denies chest pain, palpitation. Denies dizziness. Physical Examination: General: Alert, oriented x3. Neck: Supple. No JVD. Lungs: Diminished breath sounds at bases. Heart: S1, S2. Abdomen: Soft. Extremities: Edema in both legs improved. Impression And Plan: 1.Acute on chronic kidney injury. Patient has cardiorenal syndrome and underlying chronic kidney di sease stage 3B. The patient on admission was found to have creatinine level of 1.7. The patient had workup for proteinuria. Urinalysis was negative for proteinuria, although patient will need further workup with urine protein electrophoresis to rule out monoclonal gammopathy of unknown significance. The patient will continue Lasix 60 mg twice a day for cardiorenal syndrome and acute kidney injury. 2.Hypokalemia. Potassium repletion. The patient was started on spironolactone. Monitor magnesium level and phosphorus level. 3.Acute on chronic systolic heart failure. Nonischemic cardiomyopathy and ejection fraction 15%. C ardiology is following the patient. Patient previously was seen by slip cover estimator in [place]. The pat ient had previously done AICD. BNP remains severely elevated. Cardiology is consulted. Continue ad equate diuresis. Continue Lasix. The patient may be a candidate for Lasix drip. 4.Hypotension secondary to heart failure. Patient on midodrine. Adjust midodrine dose as needed. EB/MODL Voice ID: [id number] Report ID: [id number]
[2022-12-16] MEDS ORDERED: POTASSIUM CL SA 10 MEQ TAB PO ONE (06:12)
--- NOTE | 2022-12-16 07:08 | P.PN ---
Date of Service: 12/16/22 Subjective: breathing and swelling slightly improved, not needing oxygen as often concerned about his ascites, wanting paracentesis done BP low over last few days, more consistently <100 states he has been told in past 90s systolic is goal for him, and at times in the 80s systolic and asymptomatic ROS: 10 point ROS as noted above, otherwise negative Physical Exam: GEN: Alert, oriented, NAD HEENT: Normal conjunctiva, sclera anicteric CV: Regular rate and rhythm (paced), trace to 1+ b/l lower extremity edema Pulm: mild labored respirations on room air at rest, diminished at bases bilaterally ABD: Soft, nontender, nondistended Neuro: Normal speech, normal affect vitals reviewed Problem List: Acute on chronic systolic heart failure, EF: 10-15% Type II NSTEMI, demand ishcemia Acute on chronic kidney injury-unknown baseline Hypokalemia Anasarca Defibrillator/pacemaker in place Acute on chronic systolic heart failure Type II NSTEMI switch IV lasix to PO on 12/16 Continue home medication - metolazone, Entresto, Verquvo. Troponin mildly elevated x3. Monitor on telemetry continue aldactone, hold if SBP <90 Continue midodrine for hypotension Cardiology consulted recommends transfer to [facility] for advanced heart failure / transplant eval initiated transfer on 12/16, reportedly will take 2+ days to hear back Echo (12/12): Severely depressed EF - ~15% Severe global hypokinesis, Left atrial enlargement, severely dilated left ventricle, mild MR, Severe TR, mild pulmonic insufficieny, severe diastolic dysfunction, Right ventricular systolic pressure US guided paracentesis on hold d/t hypotension AICD in place Acute on chronic kidney injury likely due to diuretic use unknown baseline Nephrology is following Mild hypokalemia Replace electrolytes as needed Code: Full Dispo: tertiary care center 12/16 Initiated transfer to the [facility] for advanced Heart Failure and Transplant evaluation
[2022-12-16] MEDS: MIDODRINE HCL 5 MG TABLET PO PRN ×2 (08:44→16:40)
[2022-12-16] MEDS: VITAMIN D 1000 UNIT TAB PO SCH (08:44)
[2022-12-16] MEDS: SPIRONOLACTONE 25 MG TABLET PO SCH ×2 (08:48→20:47)
[2022-12-16] MEDS: FUROSEMIDE 40 MG/4 ML VIAL IV SCH (08:49)
[2022-12-16] MEDS: DAPAGLIFLOZIN PROPANEDIOL 5 MG PO SCH (09:00)
[2022-12-16] MEDS: SACUBITRIL/VALSARTAN 24/26 MG TAB PO SCH ×2 (09:00→20:47)
[2022-12-16] MEDS: VERICIGUAT 5 MG PO SCH (09:00)
[2022-12-16] MEDS: ASPIRIN 81 MG CHEWABLE TABLET PO SCH (10:11)
--- NOTE | 2022-12-16 16:49 | P.PN ---
Subjective Date of Service: 12/16/22 Chief Complaint: shortness of breath Subjective: Other (He reports no increase in shortness of breath. He underwent a cardiac today.) Physical Examination - Vital Signs Temperature: 97 F Blood Pressure: 87/72 Pulse: 90 Respirations: 16 Pulse Ox (%): 100 - Physical Exam General: Other (appears as his stated age) HEENT: Atraumatic, Normocephalic Neck: Supple Respiratory: Other (symmetric chest expansion) Cardiovascular: No rubs, No murmurs Gastrointestinal: Soft and benign, No guarding Musculoskeletal: No clubbing, Swelling Integumentary: No warmth Neurological: Normal speech, Normal tone Urinary: Other (no bladder distention) External genitalia: Deferred Rectal: Deferred Assessment And Plan - Plan # FREDDY 2/2 CRS1 on CKD3, vs stable CKD3b SCr 1.7 on admission, at 1.7 today Has serum protein gap. urinalysis negative for proteinuria. Follow-up random UPCR. Lasix decreased to 40 mg po bid [place] by mouth fluid intake # Hypokalemia KCl repletion today [place] 25 mg po bid Lasix 40 mg po bid # Acute on chronic systolic HF/non-ischemic cardiomyopathy S/p AICD He is followed by a grinder in [place] BNP significantly elevated TTE LVEF low at 10-15% Cardiology following Has adeq natriuresis on repeat urine chem done on 12/14 [place] + Lasix as above Cont Midodrine Start Dobu gtt, titrate to MAP > 70, SBP > 100 Cont sonal po bid as above For transfer to [facility] for advanced HF eval & mngt # Hypotension likely secondary to heart failure Continue midodrine Physician Review: Patient Assessed, Agree with Above Assessment and Plan
[2022-12-16] MEDS: FUROSEMIDE 40 MG TABLET PO SCH (16:59)
[2022-12-17 05:05] LABS: Albumin 3.6 g/dL (3.4-5.0); Bilirubin Total 1.3 mg/dL (0.2-1.0); Phosphorus 3.9 mg/dL (2.5-4.9); Potassium 3.2 mEq/L (3.5-5.1); Protein, Total 7.9 g/dL (6.4-8.2)
--- NOTE | 2022-12-17 06:47 | P.PN ---
Date of Service: 12/17/22 Subjective: doing okay; thirsty and tired no new / worsening problems transferred to ICU yesterday d/t possible need of dobutamine drip - did not require overnight, but diuretics were held for a dose yesterday ROS: 10 point ROS as noted above, otherwise negative Physical Exam: GEN: Alert, oriented, NAD HEENT: Normal conjunctiva, sclera anicteric CV: Regular rate and rhythm (paced), trace to 1+ b/l lower extremity edema Pulm: mild labored respirations on 2L NC at rest, diminished at bases bilaterally ABD: Soft, nontender, nondistended Neuro: Normal speech, normal affect vitals reviewed Problem List: Acute on chronic systolic heart failure, EF: 10-15% Type II NSTEMI, demand ishcemia FREDDY on CKD3 Hypokalemia Hyponatremia Anasarca Defibrillator/pacemaker in place Acute on chronic systolic heart failure, EF: 10-15% Type II NSTEMI, demand ishcemia switched IV lasix to PO on 12/16 Continue home medications - Entresto, Verquvo hold if SBP < 90 Troponin mildly elevated x3. Monitor on telemetry suspect demand ischemia in setting of decompensated CHF cardiology consulted continue aldactone Continue midodrine for hypotension - changed to scheduled dosing on 12/17 Cardiology consulted recommends transfer to [facility] for advanced heart failure / transplant eval initiated transfer on 12/16, reportedly will take 2+ days to hear back Echo (12/12): Severely depressed EF - ~15% Severe global hypokinesis, Left atrial enlargement, severely dilated left ventricle, mild MR, Severe TR, mild pulmonic insufficieny, severe diastolic dysfunction, Right ventricular systolic pressure US guided paracentesis on hold d/t hypotension AICD in place dobutamine drip started 12/17 FREDDY on CKD3 diuresing well, IV changed to PO lasix Nephrology is following Mild hypokalemia Replace electrolytes as needed Code: Full Dispo: tertiary care center 12/16 Initiated transfer to the [facility] for advanced Heart Failure and Transplant evaluation Continue ICU level of care
[2022-12-17] MEDS: VERICIGUAT 5 MG PO SCH (09:00)
[2022-12-17] MEDS: DAPAGLIFLOZIN PROPANEDIOL 5 MG PO SCH (09:00)
[2022-12-17] MEDS: SACUBITRIL/VALSARTAN 24/26 MG TAB PO SCH ×2 (09:19→20:00)
[2022-12-17] MEDS: ASPIRIN 81 MG CHEWABLE TABLET PO SCH (09:19)
[2022-12-17] MEDS: VITAMIN D 1000 UNIT TAB PO SCH (09:19)
[2022-12-17] MEDS: SPIRONOLACTONE 25 MG TABLET PO SCH ×2 (11:52→20:01)
[2022-12-17] MEDS: FUROSEMIDE 40 MG TABLET PO SCH ×2 (11:52→16:48)
--- NOTE | 2022-12-17 12:14 | P.PN ---
Subjective Date of Service: 12/17/22 Chief Complaint: shortness of breath Subjective: No new changes Physical Examination - Vital Signs Temperature: 97.5 F Blood Pressure: 104/70 Pulse: 93 Respirations: 16 Pulse Ox (%): 96 - Physical Exam General: Other (appears his stated age) HEENT: Atraumatic, Normocephalic Neck: Supple, JVD not distended Respiratory: Other (symmetric chest expansion) Cardiovascular: No rubs, No murmurs Gastrointestinal: Soft and benign, No guarding Musculoskeletal: No clubbing, No swelling Integumentary: No warmth Neurological: Normal speech, Normal tone Urinary: Other (no bladder distention) External genitalia: Deferred Rectal: Deferred Assessment And Plan - Plan # FREDDY 2/2 CRS1 on CKD3, vs stable CKD3b SCr 1.7 on admission, at 1.7 today Has serum protein gap. urinalysis negative for proteinuria. Follow-up random UPCR. Cont lasix same dose Dobu gtt, Midodrine po tid [place] by mouth fluid intake # Hypokalemia KCl repletion today [place] 25 mg po bid Lasix 40 mg po bid # Acute on chronic systolic HF/non-ischemic cardiomyopathy S/p AICD He is followed by a broadband technician in [place] BNP significantly elevated TTE LVEF low at 10-15% Cardiology following Has adeq natriuresis on repeat urine chem done on 12/14 Sonal + Lasix as above Cont Midodrine po tid Resume Dobu gtt, titrate to MAP > 70, SBP > 100 Cont sonal po bid as above For transfer to [facility] center for advanced HF eval & mngt # Hypotension likely secondary to heart failure Continue midodrine po tid Physician Review: Patient Assessed, Agree with Above Assessment and Plan
[2022-12-17] MEDS ORDERED: POTASSIUM CL SA 10 MEQ TAB PO STA (13:12)
[2022-12-17] MEDS: MIDODRINE HCL 5 MG TABLET PO PRN (13:56)
[2022-12-17] MEDS: MIDODRINE HCL 5 MG TABLET PO SCH ×2 (13:57→20:01)
[2022-12-17] MEDS: DOBUTAMINE 250 MG/250 ML BAG IV SCH (15:06)
--- NOTE | 2022-12-17 19:01 | PN ---
Date of Progress Note: 12/17/2022 Subjective: Seen by bedside. Still short of breath. His blood pressure dropped, so he was admitted to ICU and dobutamine was started. Feeling slightly better. Review of Systems: No chest pain. Has shortness of breath, lower extremity edema, and orthopnea and generally he is wea k. All other systems reviewed and they were negative. Physical Examination: Vital Signs: Reviewed. Head and Neck: Pupils are equal, reactive to light. Intact eye movements. Positive JVD. No cervic al lymphadenopathy. Neck is supple. Thyroid is not enlarged. Lungs: Clear to auscultation bilaterally. No rhonchi, wheezing, or crackles. No accessory muscle u se. Heart: Regular rate and rhythm. No extra sounds. Abdomen: Soft, nontender. Bowel sounds positive. No organomegaly. No masses or hernia. No rigidi ty or rebound. Extremities: 2+ edema bilaterally. No clubbing or cyanosis. Intact pulses. Skin: No rash. Neurologic: Alert, awake, oriented x3. No acute focal deficits appreciated. Investigations: BUN is 51, creatinine is 1.69. Assessment And Recommendations: 1.Acute on chronic systolic heart failure exacerbation, on IV diuretics. Dobutamine was started and awaiting on transfer to higher level of care for advanced heart failure and transplant team evaluati on. 2.Acute on chronic renal failure due to cardiorenal and acute exacerbation of heart failure. His cr eatinine is improving with diuresis to continue and carefully monitor and the patient is being followed by Nephrology. SR/MODL Voice ID: [id number] Report ID: [id number]
[2022-12-18 04:26] LABS: Hematocrit 43.1 % (39.6-49.0); RBC Red Blood Cell Count 4.31 M/uL (4.33-5.43)
[2022-12-18 04:42] LABS: Potassium 3.5 mEq/L (3.5-5.1)
--- NOTE | 2022-12-18 06:54 | P.PN ---
Date of Service: 12/18/22 Subjective: feels like hes getting SOB with activity BP remains low/normal otherwise no new / worsening problems Waiting for transfer ROS: 10 point ROS as noted above, otherwise negative Physical Exam: GEN: Alert, oriented, NAD HEENT: Normal conjunctiva, sclera anicteric CV: Regular rate and rhythm (paced), trace b/l lower extremity edema Pulm: mild labored respirations on room air at rest, diminished at bases bilaterally ABD: Soft, nontender, nondistended Neuro: Normal speech, normal affect vitals reviewed Problem List: Acute on chronic systolic heart failure, EF: 10-15% Type II NSTEMI, demand ishcemia FREDDY on CKD3 Hypokalemia Hyponatremia Anasarca Defibrillator/pacemaker in place Acute on chronic systolic heart failure, EF: 10-15% Type II NSTEMI, demand ishcemia CXR (12/18): probable left small pleural effusion switched IV lasix to PO on 12/16 Continue home medications - Entresto, Verquvo hold if SBP < 90 Troponin mildly elevated x3. Monitor on telemetry suspect demand ischemia in setting of decompensated CHF cardiology consulted continue aldactone as BP tolerates Continue midodrine for hypotension - changed to scheduled dosing on 12/17 Cardiology consulted recommends [facility] for advanced heart failure / transplant eval initiated transfer on 12/16, reportedly will take 2+ days to hear back denied transfer due to insurance / out of network - 12/18 discussed with cardiology, given improvement in fluid balance, and short run of vtach; wean dobutamine goal MAP > 60 Echo (12/12): Severely depressed EF - ~15% Severe global hypokinesis, Left atrial enlargement, severely dilated left ventricle, mild MR, Severe TR, mild pulmonic insufficieny, severe diastolic dysfunction, Right ventricular systolic pressure US guided paracentesis on hold d/t hypotension AICD in place dobutamine drip started 12/17 FREDDY on CKD3 diuresing well, IV changed to PO lasix Nephrology is following Mild hypokalemia Replace electrolytes as needed Code: Full Dispo: tertiary care center 12/16 Initiated transfer to [facility] for advanced Heart Failure and Transplant evaluation 12/18 denied transfer Continue ICU level of care
[2022-12-18] MEDS ORDERED: KCL 20 MEQ/100 mL IVPB 20 MEQ/100 ML BAG IV SCH (07:00)
[2022-12-18] MEDS: DOBUTAMINE 250 MG/250 ML BAG IV SCH ×2 (07:27→13:48)
--- NOTE | 2022-12-18 07:35 | RAD REPORT ---
EXAM DESCRIPTION: [place] Single View12/18/2022 6:33 am CLINICAL HISTORY: Shortness of breath COMPARISON: December 11, 2022 FINDINGS: Lungs appear clear of acute infiltrate. Small left pleural effusion probably present. Heart is moderately enlarged. Pacemaker leads place IMPRESSION: Probable small left pleural effusion Clear lungs
[2022-12-18] MEDS: FUROSEMIDE 40 MG TABLET PO SCH ×2 (08:35→17:00)
[2022-12-18] MEDS: VITAMIN D 1000 UNIT TAB PO SCH (08:35)
[2022-12-18] MEDS: ASPIRIN 81 MG CHEWABLE TABLET PO SCH (08:39)
[2022-12-18] MEDS: Mupirocin NASAL 2 APPL/1 GM TUBE NAS SCH ×2 (08:39→20:32)
[2022-12-18] MEDS: MIDODRINE HCL 5 MG TABLET PO SCH ×3 (08:39→20:32)
[2022-12-18] MEDS: SACUBITRIL/VALSARTAN 24/26 MG TAB PO SCH ×2 (08:39→20:33)
[2022-12-18] MEDS: SPIRONOLACTONE 25 MG TABLET PO SCH ×2 (08:39→20:32)
[2022-12-18] MEDS: DAPAGLIFLOZIN PROPANEDIOL 5 MG PO SCH (08:40)
[2022-12-18] MEDS: VERICIGUAT 5 MG PO SCH (08:41)
[2022-12-18] MEDS ORDERED: POTASSIUM CL SA 10 MEQ TAB PO ONE (12:30)
[2022-12-18] MEDS ORDERED: LIDOCAINE 1% 20 ML MDV ONE (12:46)
[2022-12-18 15:36] LABS: Albumin, (SPE) 3.6 g/dL (3.8-4.8); Alpha-1-Globulins 0.3 g/dL (0.2-0.3); Alpha-2-Globulins 0.8 g/dL (0.5-0.9); Gamma Globulins 1.5 g/dL (0.8-1.7); INTERPRETATION REPORT
--- NOTE | 2022-12-19 04:06 | PN ---
Date of Progress Note: 12/18/2022 Chief Complaint: Acute kidney injury, cardiorenal syndrome. Subjective: The patient remains in ICU. He was transferred to ICU because of hypotension. Blood pr essure is at stable range. Cardiology is following the patient. Review of Systems: Patient denies chest pain, palpitation. Physical Examination: Lungs: Clear to auscultation bilaterally. Few crackles at bases present. No wheezing. No rhonchi. Heart: S1, S2. Abdomen: Soft, benign. Extremities: Edema, mild in both legs. Assessment And Plan: 1.Acute kidney injury secondary to cardiorenal syndrome on chronic kidney disease 3. Serum creatini ne on admission was 1.7. Patient is to have urine protein electrophoresis test done and results are pending. Continue Lasix for cardiorenal syndrome. The patient was started on dobutamine drip and dr ip was terminated today. Patient will require midodrine for blood pressure support. 2.Hypokalemia. The patient is on spironolactone and Lasix for volume control and congestive heart f ailure treatment with cardiorenal syndrome management. 3.Acute on chronic systolic heart failure. Nonischemic cardiomyopathy. Continue treatment with utamine as per Cardiology. The patient will continue spironolactone, Lasix, and midodrine. Monitor urine output and renal panel. 4.Hypotension, likely secondary to heart failure. Patient is on midodrine. EB/MODL Voice ID: [id number] Report ID: [id number]
[2022-12-19 04:57] VITALS: O2SAT 99
[2022-12-19 05:33] LABS: Magnesium 2.1 mg/dL (1.6-2.4); Potassium 3.8 mEq/L (3.5-5.1)
--- NOTE | 2022-12-19 07:17 | P.PN ---
Date of Service: 12/19/22 Subjective: doing okay today wanting paracentesis done, discussed risks/reasons why it can't be done BP remains low/normal no acute events overnight ROS: 10 point ROS as noted above, otherwise negative Physical Exam: GEN: Alert, oriented, NAD HEENT: Normal conjunctiva, sclera anicteric CV: Regular rate and rhythm (paced), trace b/l lower extremity edema Pulm: mild labored respirations on room air at rest, diminished at bases bilaterally ABD: Soft, nontender, nondistended Neuro: Normal speech, normal affect vitals reviewed Problem List: Acute on chronic systolic heart failure, EF: 10-15% Type II NSTEMI, demand ishcemia FREDDY on CKD3 Hypokalemia Hyponatremia Anasarca Defibrillator/pacemaker in place Acute on chronic systolic heart failure, EF: 10-15% Type II NSTEMI, demand ishcemia CXR (12/18): probable left small pleural effusion switched IV lasix to PO on 12/16 Continue home medications - Entresto, Verquvo hold if SBP < 90 Troponin mildly elevated x3. Monitor on telemetry suspect demand ischemia in setting of decompensated CHF cardiology consulted continue aldactone as BP tolerates Continue midodrine for hypotension - changed to scheduled dosing on 12/17 Cardiology consulted recommends transfer to [facility] for advanced heart failure / transplant eval initiated transfer on 12/16, reportedly will take 2+ days to hear back denied transfer due to insurance / out of network - 12/18 discussed with cardiology, given improvement in fluid balance, and short run of vtach; wean dobutamine goal MAP > 60 Echo (12/12): Severely depressed EF - ~15% Severe global hypokinesis, Left atrial enlargement, severely dilated left ventricle, mild MR, Severe TR, mild pulmonic insufficieny, severe diastolic dysfunction, Right ventricular systolic pressure US guided paracentesis on hold d/t hypotension AICD in place dobutamine drip started 12/17 FREDDY on CKD3 diuresing well, IV changed to PO lasix Nephrology is following Mild hypokalemia Replace electrolytes as needed Code: Full Dispo: Home 12/16 Initiated transfer to the [facility] for advanced Heart Failure and Transplant evaluation 12/18 denied transfer Possible DC in afternoon if no worsening Continue ICU level of care
[2022-12-19] MEDS: VITAMIN D 1000 UNIT TAB PO SCH (08:16)
[2022-12-19] MEDS: ASPIRIN 81 MG CHEWABLE TABLET PO SCH (08:16)
[2022-12-19] MEDS: Mupirocin NASAL 2 APPL/1 GM TUBE NAS SCH (08:17)
[2022-12-19] MEDS: MIDODRINE HCL 5 MG TABLET PO SCH ×2 (08:17→15:37)
[2022-12-19] MEDS ORDERED: POTASSIUM CL SA 10 MEQ TAB PO ONE (08:25)
[2022-12-19] MEDS: DAPAGLIFLOZIN PROPANEDIOL 5 MG PO SCH (09:00)
[2022-12-19] MEDS: SACUBITRIL/VALSARTAN 24/26 MG TAB PO SCH (09:00)
[2022-12-19] MEDS: VERICIGUAT 5 MG PO SCH (09:00)
[2022-12-19] MEDS ORDERED: POTASSIUM 25 MEQ EFFERV TAB PO ONE (09:00)
[2022-12-19] MEDS: SPIRONOLACTONE 25 MG TABLET PO SCH (10:01)
[2022-12-19] MEDS: FUROSEMIDE 40 MG TABLET PO SCH (10:01)
--- NOTE | 2022-12-19 12:26 | P.DS ---
Admission Date: 12/11/22 Discharge Date: 12/19/22 Disposition: ROUTINE DISCHARGE Discharge Condition: FAIR Reason for Admission: shortness of breath Consultations: Cardiology - Dr. Molina Nephrology - Dr. Isaacs General Surgery - Dr. Lawrence Brief History of Present Illness: 62yo M, PMH: cardiac ablations, defibrillator pacemaker, of CAD, heart failure Patient presents to the emergency room with abdominal swelling, shortness of breath. He reports shortness of breath x1 week, he reports trying to take diuretics and reports he is continuing to gain weight. He denies chest pain, cough, fever, chills, abdominal pain, dizziness, syncope. He reports he is traveling from out out of town and is here for the summer. He reports history of low ejection fraction, he thinks is an average of 15%. Hospital Course: Problem List: Acute on chronic systolic heart failure, EF: 10-15% Type II NSTEMI, demand ishcemia FREDDY on CKD3 Hypokalemia Hyponatremia Anasarca Defibrillator/pacemaker in place Patient presented with abdominal swelling, shortness of breath. Troponins were mildly elevated x3. Chest x-ray noted Mild CHF and small left pleural effusion. Cardiology was consulted. Echo showed a severely depressed EF - ~10-15% along with Severe global hypokinesis, Left atrial enlargement, severely dilated left ventricle, mild MR, Severe TR, mild pulmonic insufficieny, severe diastolic dysfunction, Right ventricular systolic pressure. Dr. Molina recommenced patient for transfer to tertiary care center for Advanced Heart Failure and Transplant evaluation as he could benefit either from chronic inotropic therapy or left ventricular assist device as a bridge to transplant if his kidney function improves or he might need to be considered for heart and kidney transplant given his level of Heart failure. Initiated transfer on 12/16 and was denied on 12/18 due to insurance / out of network. Patient did receive <2 days of dobutamine therapy as trial, he developed a short episode of vtach and no significant improvement of blood pressure. He was weaned off this medication and had stable blood pressure readings in 80s-100/60s, which patient reported is his baseline. During his hospitalization, Nephrology was consulted for FREDDY/CKD, and had improvement with IV fluids and lasix, and addition of midodrine and spironolactone. Patient remained stable on room air and was deemed stable for discharge. Discussed if any worsening of symptoms to go to a tertiary care center / hospital. new Prescriptions: spironolactone and midodrine continue other home medications as previously prescribed monitor blood pressure and if dizzy/lightheaded and blood pressure lower than usual, hold diuretics and contact your physician. Follow up: PCP 3-5 days Cardiology within 1 week Nephrology within 1-2 weeks Physical Exam: GEN: Alert, oriented, NAD HEENT: Normal conjunctiva, sclera anicteric CV: Regular rate and rhythm (paced), trace b/l lower extremity edema Pulm: non labored respirations on room air at rest, diminished at bases bilaterally ABD: Soft, nontender, nondistended Integumentary: No rashes Neuro: Normal speech, normal affect Vital Signs/Physical Exam: Temp Pulse Resp BP Pulse Ox 96.7 F L 95 H 26 H 81/62 L 100 12/19/22 08:00 12/19/22 11:00 12/19/22 11:00 12/19/22 11:00 12/19/22 11:00 Laboratory Data at Discharge: WBC 6.50 thou/uL (4.3-10.9) 12/18/22 03:56 Hgb 14.2 g/dL (13.6-17.9) 12/18/22 03:56 Hct 43.1 % (39.6-49.0) 12/18/22 03:56 Plt Count 189 thou/uL (152-406) 12/18/22 03:56 PT 11.9 SECONDS (9.2-12.8) 12/11/22 21:30 INR 1.00 12/11/22 21:30 Sodium 132 mEq/L (136-145) L 12/19/22 04:37 Potassium 3.8 mEq/L (3.5-5.1) 12/19/22 04:37 BUN 41 mg/dL (7-18) H 12/19/22 04:37 Creatinine 1.52 mg/dL (0.70-1.30) H 12/19/22 04:37 Glucose 135 mg/dL (74-106) H 12/19/22 04:37 Phosphorus 3.9 mg/dL (2.5-4.9) 12/17/22 04:17 Magnesium 2.1 mg/dL (1.6-2.4) 12/19/22 04:37 Total Bilirubin 1.3 mg/dL (0.2-1.0) H 12/17/22 04:17 AST 27 U/L (15-37) 12/17/22 04:17 ALT 34 U/L (16-61) 12/17/22 04:17 Alkaline Phosphatase 76 U/L (45-117) 12/17/22 04:17 Home Medications: Aspirin Chewable [Aspirin Chewable*] 81 mg PO DAILY 12/13/22 Dapagliflozin Propanediol [Farxiga] 5 mg PO DAILY 12/13/22 Furosemide 40 mg PO BID PRN 12/13/22 Metolazone [Zaroxolyn] 10 mg PO DAILY 12/13/22 Potassium Chloride 10 meq PO BID 12/13/22 Sacubitril/Valsartan [Entresto 24 mg-26 mg Tablet] 1 tab PO BID 12/13/22 Vericiguat [Verquvo] 5 mg PO DAILY 12/13/22 Midodrine HCl [Proamatine*] 5 mg PO TID 30 Days #90 tab 12/19/22 Spironolactone [Aldactone*] 25 mg PO BID 30 Days #60 tab 12/19/22 New Medications: Spironolactone [Aldactone*] 25 mg PO BID 30 Days #60 tab Midodrine HCl [Proamatine*] 5 mg PO TID 30 Days #90 tab Physician Discharge Instructions: PROBLEM: Congestive Heart Failure GOAL: Clear understanding of disease process INSTRUCTIONS:Follow up with nursing staffing coordinator for CHF/Transplant Diet: 1.5 Liter fluid restirction, Heart healthy Activity: As tolerated DME DME: Date Ordered: Name of Company: [employer] Services Needed: None Name of Company: Date or Referral: IMMUNIZATION Influenza Vaccine Indicated: Influenza Vaccine Given: Date Given: Pneumonia Vaccine Indicated: No Pneumonia Vaccine Given: Date Given: Patient presented with abdominal swelling, shortness of breath. Troponins were mildly elevated x3. Chest x-ray noted Mild CHF and small left pleural effusion. Cardiology was consulted. Echo showed a severely depressed EF - ~10-15% along with Severe global hypokinesis, Left atrial enlargement, severely dilated left ventricle, mild MR, Severe TR, mild pulmonic insufficieny, severe diastolic dysfunction, Right ventricular systolic pressure. Dr. Molina recommenced patient for transfer to tertiary care center for Advanced Heart Failure and Transplant evaluation as he could benefit either from chronic inotropic therapy or left ventricular assist device as a bridge to transplant if his kidney function improves or he might need to be considered for heart and kidney transplant given his level of Heart failure. Initiated transfer on 12/16 and was denied on 12/18 due to insurance / out of network. Patient did receive <2 days of dobutamine therapy as trial, he developed a short episode of vtach and no significant improvement of blood pressure. He was weaned off this medication and had stable blood pressure readings in 80s-100/60s, which patient reported is his baseline. During his hospitalization, Nephrology was consulted for FREDDY/CKD, and had improvement with IV fluids and lasix, and addition of midodrine and spironolactone. Patient remained stable on room air and was deemed stable for discharge. new Prescriptions: spironolactone and midodrine continue other home medications as previously prescribed monitor blood pressure and if dizzy/lightheaded and blood pressure lower than usual, hold diuretics and contact your physician. Follow up: PCP 3-5 days Cardiology within 1 week Nephrology within 1-2 weeks Time spent managing pt's care (in minutes): 45
[2022-12-19 13:14] VITALS: BP 80/58; TEMP 97.1
--- NOTE | 2022-12-19 14:28 | P.PN ---
Subjective Date of Service: 12/19/22 Chief Complaint: shortness of breath Subjective: Other (he reports no increased shortness of breath.) Physical Examination - Vital Signs Temperature: 97.1 F Blood Pressure: 80/58 Pulse: 90 Respirations: 20 Pulse Ox (%): 100 - Physical Exam General: Other (appears as his stated age) HEENT: Atraumatic, Normocephalic Neck: Supple Respiratory: Other (symmetric chest expansion) Cardiovascular: No rubs, No murmurs Gastrointestinal: Soft and benign, No guarding Musculoskeletal: Swelling Integumentary: No warmth Neurological: Normal speech, Normal tone Urinary: Other (no bladder distention) External genitalia: Deferred Rectal: Deferred Assessment And Plan - Plan # FREDDY 2/2 CRS1 on CKD3, vs stable CKD3b SCr 1.7 on admission, improved to 1.5 today Cont lasix same dose Dobu gtt, Midodrine po tid [place] by mouth fluid intake # Hypokalemia Improved, KCl repletion prn [place] 25 mg po bid Lasix 40 mg po bid # Acute on chronic systolic HF/non-ischemic cardiomyopathy S/p AICD He is followed by a milling operator in [place] BNP significantly elevated TTE LVEF low at 10-15% Cardiology following Has adeq natriuresis on repeat urine chem done on 12/14 Sonal + Lasix as above Cont Midodrine po tid Resume Dobu gtt, titrate to MAP > 70, SBP > 100 Cont sonal po bid as above For transfer to [facility] for advanced HF eval & mngt # Hypotension likely secondary to heart failure Continue midodrine po tid + dobu gtt # Dispo Health insurance unable to cover care with the advanced HF team He will be dc today & he plans to go to [facility] ER to be admitted for advanced HF mngt Physician Review: Patient Assessed, Agree with Above Assessment and Plan
[2022-12-24 22:46] LABS: Beta Globulin 24 HR Urine 17 %; Gamma Globulin, 24hr Urine 16 %; Interpretation: REPORT; Protein/Crea Ratio in g 139 mg/g creat (<100); Protein/Crea Ratio in mg 0.139 (<0.100); Urine Alpha-2-Globulins, 24 Hr 9 %; Urine PEP Abn Protein Band1 REPORT; Urine Total Volume 24 Hours 850 mL
== END 2022-12-19 16:45 | disposition home or self-care (01) | DRG 281 ==
LOC: ER 19:26 → ERHOLD 22:48 → 2ND 12-12 07:51 → 3RD-ICU 12-16 18:30
PROVIDERS: ADMIT Internal Medicine; ATTEND Hospitalist
DX: I50.23 Acute on chronic systolic (congestive) heart failure (principal); I21.A1 Myocardial infarction type 2; E87.1 Hypo-osmolality and hyponatremia; I42.8 Other cardiomyopathies; N17.9 Acute kidney failure, unspecified; R18.8 Other ascites; E87.6 Hypokalemia; N18.32 Chronic kidney disease, stage 3b; I95.9 Hypotension, unspecified; I25.10 Atherosclerotic heart disease of native coronary artery without angina pectoris; Z95.810 Presence of automatic (implantable) cardiac defibrillator
CPT/HCPCS: 36415; 71045; 76770; 80048; 80053; 80076; 81003; 82306; 82550; 82570; 83735; 83880; 83935; 83970; 84100; 84132; 84156; 84165; 84166; 84300; 84484; 85025; 85027; 85610; 93005; 93306; 96374; 99285; J1250; J1940; J2001; J3480; J7030; J7040; J7050